=== PATIENT | male | born 1945 | race Caucasian/White ===

== ENCOUNTER 2021-04-21 17:52 | Emergency (ER) | payer MEDICARE, OTHER, SELFPAY ==
[2021-04-21 18:26] VITALS: BP 144/75; PULSE 59; RESP 16; TEMP 36.7; O2SAT 96; BMI 33.0
--- NOTE | 2021-04-21 19:02 | W.ED.EXTPRO ---
HPI - Extremity Problem General: Chief complaint: Wound/Laceration Stated complaint: RIGHT HAND INJURY Time Seen by Provider: 04/21/21 19:02 Source: patient Mode of arrival: ambulatory Limitations: no limitations History of Present Illness: HPI Narrative: Patient is a 75-year-old male who presents to ED today with complaint of a laceration to his right thumb as well as right hand and wrist pain. Patient tells me 3 [place] when he lacerated his right thumb. 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 He did not have any direct injury or trauma to his hand or wrist but states it has felt sore since. He does have a history of RA on Celebrex for this. They have not noticed any redness or drainage from the laceration. Associated symptoms: Deny chest pain or fever(s) Review of Systems Const: Denies: fever(s), chills, body aches, fatigue or malaise Card: Denies: chest pain Resp: Denies: dyspnea GI: Denies: abdominal pain, nausea or vomiting Musc: Reports: extremity pain (R hand), joint pain (R wrist) and joint stiffness; Denies: neck pain, extremity swelling, joint swelling, joint redness, joint warmth or limited range of motion Skin/Breast: Reports: other (laceration R thumb) Neuro: Denies: numbness in extremities, weakness in extremities or sensory changes Physical Exam Const: COMMON NORMALS: no acute distress, average body habitus, patient oriented x3, no limitations, healthy appearing, alert and well nourished Extremity: NARRATIVE EXTREMITY EXAM: 2.0 cm laceration to distal lateral thumb; no surrounding redness/drainage/streaking at this time; no damage to nail LEFT UPPER EXTREMITY: Yes hand & digits OTHER: 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; reports soreness to proximal volar hand and wrist; maintains ROM; NV intact Neuro: COMMON NORMALS: patient oriented x3, moves all extremities, no focal motor deficits and no sensory deficits noted SENSORIUM/ORIENTATION: Yes alert Skin: NARRATIVE SKIN EXAM: see extremity assessment for pertinent skin findings Course Vital Signs: Vital signs: Vital Signs Temperature 98.1 F 04/21/21 19:27 Pulse Rate 59 L 04/21/21 19:27 Respiratory Rate 16 04/21/21 19:27 Blood Pressure 124/67 04/21/21 19:27 Pulse Oximetry 96 04/21/21 19:27 MDM - Extremity (Nontraumatic) MDM Narrative: Medical decision making narrative: Laceration currently does not appear infected. We will go ahead and write for antibiotics that he may fill only if he starts noticing redness, drainage, swelling, increased pain, streaking up his arm. With laceration being 3 days old repair is contraindicated. He has no direct injury or trauma to his hand or wrist to warrant XRs. Patient soreness most likely possible exacerbation of his RA from lifting or wrist strain. Discharge Plan Discharge Patient Disposition: Home Clinical Impression: Laceration of right thumb Qualifiers: Encounter type: initial encounter Damage to nail status: without damage Foreign body presence: without foreign body Qualified Code(s): S61.011A - Laceration without foreign body of right thumb without damage to nail, initial encounter Muscle strain of right wrist Qualifiers: Encounter type: initial encounter Qualified Code(s): S66.911A - Strain of unspecified muscle, fascia and tendon at wrist and hand level, right hand, initial encounter Condition: Stable Prescriptions: New cephalexin 500 mg capsule 500 mg PO Q6H 7 Days Qty: 28 RF: 0 Medrol (Jasson) 4 mg tablets,dose pack See Rx Instructions .ROUTE .COMPLEX Qty: 21 RF: 0 Discharge Orders: Discharge ED (Routine); Ordered 04/21/21 Ordered By: Sangita Whitfield Coding Level of Care Code ED Director Weights And Measures for Quoc Hemphill
[2021-04-21] MEDS: tetanus-diphtheria tox (adult) 0.5 mL SDV IM (19:26)
[2021-04-21 19:27] VITALS: BP 124/67; PULSE 59; RESP 16; TEMP 36.7; O2SAT 96
== END 2021-04-21 19:28 | disposition home or self-care (01) ==
PROVIDERS: Emergency Provider Physician Assistant
DX: S61.011A Laceration without foreign body of right thumb without damage to nail, initial encounter (principal); S66.911A Strain of unspecified muscle, fascia and tendon at wrist and hand level, right hand, initial encounter; W26.8XXA Contact with other sharp object(s), not elsewhere classified, initial encounter; Z23 Encounter for immunization
CPT/HCPCS: 90471; 90714; 99282